=== PATIENT | male | born 1985 | race African-American/Black ===

== ENCOUNTER 2021-12-03 09:59 | Emergency (ER) | payer OTHER ==
[~2021-12-03] VITALS: Ht 175.3 cm; Wt 104.4 kg
[2021-12-03 10:17] VITALS: BP 154/88
[2021-12-03] MEDS ORDERED: HYDR25SU18 RC ×2 (10:31→15:45)
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
== END 2021-12-03 11:05 | disposition home or self-care (01) ==
LOC: ER 09:59
DX: K64.4 Residual hemorrhoidal skin tags (principal)
CPT/HCPCS: 99282